=== PATIENT | male | born 1980 | race Hispanic/Latino ===

== ENCOUNTER 2018-10-29 14:08 | Emergency (ER) | payer OTHER ==
[~2018-10-29] VITALS: Ht 193 cm; Wt 108.9 kg
--- OUTSIDE RECORDS SUMMARY | 2018-10-29 14:12 | XMS REPORT | Continuity of Care Document ---
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 *SELF PAY* [employer] (PPO) *SELF PAY* [employer] (PPO) *SELF PAY* [employer] HE[employer] (PPO) *SELF PAY* [employer] HE[employer] (PPO) *SELF PAY* [employer] HE[employer] (PPO) *SELF PAY* C[employer] HE[employer] (PPO) *SELF PAY* [employer] (PPO) *SELF PAY* [employer] (PPO) *SELF PAY* [employer] (PPO) Encounters Encounter Performer Location Date Office Visit Moiz Story MD [facility] [place] Aug 09, 2014 Problems Problem Effective Dates 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, 2014 Active Procedures Date Description Comments Jul 24, 2014 smoking status Never smoker Medications Medication Instructions Start Date Status ADDERALL 15 MG TABS Jul 24, 2014 Active Vital Signs Date Description Test Result Jul 24, 2014 weight E&M - 3141-9 WEIGHT 332 lb Jul 24, 2014 height E&M - 8302-2 HEIGHT 72 in Jul 24, 2014 blood pressure, systolic - 8480-6 BP SYSTOLIC 144 mm Hg Jul 24, 2014 blood pressure, diastolic - 8462-4 BP DIASTOLIC 91 mm Hg Jul 24, 2014 pulse rate E&M - 8867-4 PULSE RATE 90 /min Jul 24, 2014 temperature E&M TEMPERATURE 96.5 deg f Aug 09, 2014 weight E&M - 3141-9 WEIGHT 325 lb Aug 09, 2014 height E&M - 8302-2 HEIGHT 77 in Aug 09, 2014 pulse rate E&M - 8867-4 PULSE RATE 105 /min Aug 09, 2014 blood pressure, systolic - 8480-6 BP SYSTOLIC 153 mm Hg Aug 09, 2014 blood pressure, diastolic - 8462-4 BP DIASTOLIC 95 mm Hg
--- OUTSIDE RECORDS SUMMARY | 2018-10-29 14:12 | XMS REPORT | Encounter Summary ---
Author Organization Unknown Address [address] [place] [address] Phone [phone] Care Team Providers Care Labor Service Representative Name Role Phone Carlo Smith MD 3 [phone] Reason for Visit Flu Immunization; Left Medical Complaint; Immunization Instructions 1. Tinea corporis ketoconazole 2 % topical cream 2. Influenza vaccine needed Fluarix Quad 7724-2162 (PF) 60 mcg (15 mcg x 4)/0.5 mL IM syringe 3. Immunization Adacel (Tdap Adolesn/Adult)(PF)2Lf-(2.5-5-3-5mcg)-5 Lf/0.5 mL IM susp 4. Counseling Discussion Note Pt is in NAD; Verbalizes understanding of all instructions with no questions at this time. Patient educational handouts: No information available. Plan of Care Patient Instructions Refer to your VIS handout as discussed in clinic today regarding your care after administration. Follow up with your PCP as needed. In case of emergecy call 911 or go to nearest ER. Td Booster every 10 years after first Tdap vaccine. Try not to scratch the rash. Shower or bathe daily and after you exercise. Keep your skin dry as much as possible to allow it to heal. Use selsum shampoo over the counter twice a week for 2 weeks. Do not share clothing, sports equipment, towels, or sheets to avoid spreading the fungi to other people. Keep area clean and dry. Clean with soap and water twice a day, pat dry and apply antifungal as directed. Take medications as prescribed. Return to clinic or follow up with your PCP or gold burnisher within 2-3 days if symptoms worsen as discussed. In case of emergency: worsening swelling or redness, tingling/numbness/loss of sensation and purple discoloration call 911 or go to nearest ER Reminders Provider Appointments None recorded. Lab None recorded. Referral None recorded. Procedures None recorded. Surgeries None recorded. Imaging None recorded. Medications Name Start Date dextroamphetamine-amphetamine 15 mg tablet TAKE 1 TABLET BY MOUTH TWICE A DAY ketoconazole 2 % topical cream APPLY TO THE AFFECTED AREA(S) BY TOPICAL ROUTE ONCE DAILY X 3 WEEKS Medications Administered None recorded. Vitals Height Weight BMI Blood Pressure 6 ft 5 in 300 lbs 35.6 kg/m2 122/86 mm[Hg] Lab Results None recorded. Allergies Code Code System Name Reaction Severity Status Onset NKDA Problems None recorded. Procedures Date Name Performed by Brain Biopsy W/ct/mr Guide Information not available Vaccine List Vaccine Type influenza, injectable, quadrivalent, preservative free 05/08/2017 Tdap 05/08/20170.5 mL Social History Smoking Status Former Smoker Past Encounters 05/08/2017 Tinea Corporis; Influenza Vaccine Needed; Immunization; Counseling Rubina Ram, SALT PLANT OPERATOR-C: [address] [place] [address], Ph. History of Present Illness Lwvk-Kfmrbfm-Thdte-Skin Lesion-Bite 1 Reported By: Patient HPI: Location: legs. Quality: not painful, itchy, flaking, red, single, localized, swollen, repeated infections. Severity: worsening, moderate. Duration: has noted for 2-3 months. Onset/Timing: gradual onset, recurring. Context: no new detergents or skin products, no one else with similar rash, no sting or bite, scratching. Aggravating factors: clothing. Alleviating factors: nothing gives relief. Associated Symptoms: no fever/chills, no muscle aches, no headache, no cold symptoms, no nausea, no vomiting, no diarrhea, no urinary symptoms Immunization Reported By: Patient HPI: Immunization Request (normal) no symptoms. Immunization eligibility questions No vaccines in last month, No reaction to previous vaccines: Review of Systems:ROS as noted in the HPI Review of Systems Basic Reported By: Patient Constitutional: Constitutional: no fever Physical Exam Adult Basic, 11-13 Yr Males, 14-21 Yr Male, Adult Female Complete, Adult Male Complete, Immunization Reported By: Patient Constitutional: General Appearance: healthy-appearing, well-nourished, well-developed. Level of Distress: NAD. Ambulation: ambulating normally Psychiatric: Mental Status: active and alert. Orientation: to time, to place, to person Lungs: Respiratory effort: no dyspnea. Auscultation: breath sounds normal Cardiovascular: Heart Auscultation: RRR, no murmurs Skin: Inspection and palpation: lesion Abdomen: Palpation: non-distended, no guarding, no tenderness. Liver: non-tender, no hepatomegaly. Spleen: non-tender, no splenomegaly. Hernia: no palpable hernias. Bowel Sounds: normal. Inspection and Palpation: soft, no rebound tenderness, no masses, no CVA tenderness
--- OUTSIDE RECORDS SUMMARY | 2018-10-29 14:12 | XMS REPORT | Continuity of Care Document ---
Author Author [facility] Address Unknown Phone Unavailable Problems Problem Status Onset Date Classification Date Reported Comments Source Body mass index 30+ - obesity 08/10/2017 Diagnosis 08/10/2017 [facility] Tinea corporis 08/10/2017 Diagnosis 08/10/2017 [facility] Acute lower respiratory tract infection 08/10/2017 Diagnosis 08/10/2017 [facility] Influenza vaccine needed 05/08/2017 Diagnosis 05/08/2017 [facility] Immunization 05/08/2017 Diagnosis 05/08/2017 [facility] Counseling 05/08/2017 Diagnosis 05/08/2017 [facility] Influenza-like symptoms 09/20/2016 Diagnosis 09/20/2016 [facility] Sore throat symptom 09/20/2016 Diagnosis 09/20/2016 [facility] ACOUSTIC NEUROMA Active 07/24/2014 Condition 2014 [facility] Medications Medication Details Route Status Patient Instructions Ordering Provider Order Date Source ADDERALL 15 MG TABS Active 07/24/2014 [facility] Amphetamine aspartate 3.75 MG / Amphetamine Sulfate 3.75 MG / Dextroamphetamine saccharate 3.75 MG / Dextroamphetamine Sulfate 3.75 MG Oral Tablet dextroamphetamine-amphetamine 15 mg tablet TAKE 1 TABLET BY MOUTH TWICE A DAY Active [facility] Ketoconazole 20 MG/ML Topical Cream ketoconazole 2 % topical cream APPLY TO THE AFFECTED AREA(S) BY TOPICAL ROUTE ONCE DAILY X 3 WEEKS Active [facility] Amoxicillin 875 MG / Clavulanate 125 MG Oral Tablet amoxicillin 875 mg-potassium clavulanate 125 mg tablet Take 1 tablet every 12 hours by oral route as directed for 10 days. Active [facility] 200 ACTUAT Albuterol 0.09 MG/ACTUAT Metered Dose Inhaler [ProAir] ProAir HFA 90 mcg/actuation aerosol inhaler Inhale 2 puffs every 4-6 hours by inhalation route as needed. Active [facility] terbinafine 250 MG Oral Tablet terbinafine HCl 250 mg tablet Take 1 tablet every day by oral route as directed for 30 days. Active [facility] Phentermine Hydrochloride 37.5 MG Oral Tablet phentermine 37.5 mg tablet TAKE ONE-HALF (1/2) TABLET(S) BY MOUTH EVERY MASONRY CONTRACTOR ADMINISTRATOR FOR 1 WEEK THEN TAKE 1 TABLET EVERY MASONRY CONTRACTOR ADMINISTRATOR. Active [facility] Oseltamivir 75 MG Oral Capsule [Tamiflu] Tamiflu 75 mg capsule Take 1 capsule every day by oral route as directed for 10 days. Active [facility] Allergies, Adverse Reactions, Alerts Substance Category Reaction Severity Reaction type Status Date Reported Comments Source Immunizations Immunization Date Given Site Status Last Updated Comments Source Tdap 05/08/2017 completed [facility] influenza, injectable, quadrivalent, preservative free 05/08/2017 completed [facility] Results Order Name Results Value Reference Range Date Interpretation Comments Source Influenza A negative 08/10/2017 [facility] Influenza B negative 08/10/2017 [facility] RESULT negative 09/20/2016 [facility] SWAB LOCATION Left and Right tonsillar pillars 09/20/2016 [facility] Influenza A negative 09/20/2016 [facility] Influenza B negative 09/20/2016 [facility] Vital Signs Vital Sign Value Date Comments Source Diastolic (mm Hg) 80 08/10/2017 [facility] Height 77 08/10/2017 [facility] Systolic (mm Hg) 120 08/10/2017 [facility] Weight 295 08/10/2017 [facility] Diastolic (mm Hg) 86 05/08/2017 [facility] Height 77 05/08/2017 [facility] Systolic (mm Hg) 122 05/08/2017 [facility] Weight 300 05/08/2017 [facility] Diastolic (mm Hg) 86 09/20/2016 [facility] Height 77 09/20/2016 [facility] Systolic (mm Hg) 128 09/20/2016 [facility] Weight 300 09/20/2016 [facility] Weight 293.4 2014 [facility] Height 77 2014 [facility] Temperature Oral (F) 97.0 F 2014 [facility] Heart Rate 93 2014 [facility] Systolic (mm Hg) 126 2014 [facility] Diastolic (mm Hg) 81 2014 [facility] Weight 324 11/21/2014 [facility] Height 77 11/21/2014 [facility] Temperature Oral (F) 97 F 11/21/2014 [facility] Heart Rate 98 11/21/2014 [facility] Systolic (mm Hg) 148 11/21/2014 [facility] Diastolic (mm Hg) 86 11/21/2014 [facility] Weight 325 08/09/2014 [facility] Height 77 08/09/2014 [facility] Heart Rate 105 08/09/2014 [facility] Systolic (mm Hg) 153 08/09/2014 [facility] Diastolic (mm Hg) 95 08/09/2014 [facility] Weight 332 07/24/2014 [facility] Height 72 07/24/2014 [facility] Systolic (mm Hg) 144 07/24/2014 [facility] Diastolic (mm Hg) 91 07/24/2014 [facility] Heart Rate 90 07/24/2014 [facility] Temperature Oral (F) 96.5 F 07/24/2014 [facility] Encounters Location Location Details Encounter Type Encounter Number Reason For Visit Attending Provider ADM Date DC Date Status Source [facility] [place] [id number] Moiz Story MD 07/24/2014 07/24/2014 [facility] [place] Office Visit [id number] Moiz Story MD 08/09/2014 08/09/2014 [facility] [place] Office Visit [id number] Moiz Story MD 11/21/2014 11/21/2014 [facility] [place] Office Visit [id number] Moiz Story MD 2014 2014 [facility] Outpatient [id number] JOSE GIBBS 03/14/2015 Active [facility] Outpatient [id number] JOSE GIBBS 01/09/2016 Active [facility] Outpatient [id number] JOSE GIBBS 07/30/2016 Active [facility] [place] - [facility] - [id number] Collins-C: [address] [place] [address], Ph. [id number] Rubina Ram 09/20/[facility] [place] [facility] - [id number] Collins-C: [address] [place] [address], Ph. [id number] Rubina Ram 05/08/2017 [facility] [place] [facility] - [id number]/[address] JIN CalderónC: [address] [place] [address], Ph. [id number] Jeancarlos Gardiner 08/10/2017 [facility] Outpatient [id number] Jose Gibbs 09/15/2018 Active [facility] Procedures Procedure Code Date Perfomer Comments Source Brain Biopsy W/ct/mr Guide 49341 [facility] Brain Biopsy W/ct/mr Guide [facility]
--- OUTSIDE RECORDS SUMMARY | 2018-10-29 14:12 | XMS REPORT | Encounter Summary ---
Author Organization Unknown Address [address] [place] [address] Phone [phone] Care Team Providers Care Airplane Navigator Name Role Phone Carlo Smith MD 3 [phone] Reason for Visit Medical Complaint Instructions 1. Acute lower respiratory tract infection rapid flu (A+B) amoxicillin 875 mg-potassium clavulanate 125 mg tablet ProAir HFA 90 mcg/actuation aerosol inhaler 2. Tinea corporis terbinafine HCl 250 mg tablet 3. Body mass index 30+ - obesity Discussion Note OTC tylenol/ibuprofen as needed for fever/pain. Stay hydrated and rest. If symptoms do not improve after completion of antibiotic or worsens sooner, please follow up with PCP/UC within 3 days. Keep area clean and dry. Avoid touching the area. If symptoms do not improve after completion of antifungal or worsens sooner, please follow up with PCP/social insurance analyst within 3 days or sooner if needed. Follow up with PCP to monitor LFTs. discussed treatment plan and medication use. patient verbalized understanding and agrees with the plan. Patient educational handouts: No information available. Plan of Care Patient Instructions continue claritin-d as needed. Reminders Provider Appointments None recorded. Lab Rapid Flu (A+B) 08/10/2017 [facility] Referral None recorded. Procedures None recorded. Surgeries None recorded. Imaging None recorded. Medications Name Start Date amoxicillin 875 mg-potassium clavulanate 125 mg tablet Take 1 tablet every 12 hours by oral route as directed for 10 days. dextroamphetamine-amphetamine 15 mg tablet TAKE 1 TABLET BY MOUTH TWICE A DAY ProAir HFA 90 mcg/actuation aerosol inhaler Inhale 2 puffs every 4-6 hours by inhalation route as needed. terbinafine HCl 250 mg tablet Take 1 tablet every day by oral route as directed for 30 days. Medications Administered None recorded. Vitals Height Weight BMI Blood Pressure 6 ft 5 in 295 lbs 35 kg/m2 120/80 mm[Hg] Lab Results Date Name Specimen Result Interpretation Description Value Range Status Address Rapid Flu (A+B) Influenza a negative [facility]: [facility] Influenza B negative [facility]: [address] [place] [address] Allergies Code Code System Name Reaction Severity Status Onset NKDA Problems None recorded. Procedures Date Name Performed by Brain Biopsy W/ct/mr Guide Information not available Vaccine List Vaccine Type influenza, injectable, quadrivalent, preservative free 05/08/2017 Tdap 05/08/20170.5 mL Social History Smoking Status Former Smoker Past Encounters 08/10/2017 Acute Lower Respiratory Tract Infection; Tinea Corporis; Body Mass Index 30+ - Obesity Jeancarlos Gardiner PA-C: [address] [place] [address], Ph. History of Present Illness Gxpt-Atksgbw-Xtcfh-Skin Lesion-Bite 1 Reported By: Patient HPI: Location: legs. Quality: not painful, itchy, dry, red, single, localized. Severity: worsening, mild. Duration: has noted for >3 months. Onset/Timing: gradual onset. Context: no new detergents or skin products, no one else with similar rash, no sting or bite; Pt was treated for ringworm rash on 05/08/17 with topical ketoconazole cream; rash has not improved. Aggravating factors: nothing makes it worse. Alleviating factors: nothing gives relief; OTC lotrim. Associated Symptoms: no fever/chills, no headache, no nausea, no vomiting, no diarrhea, no urinary symptoms, muscle aches, cold symptoms Kwirp-Utndontpgf-Fsufhwg Reported By: Patient HPI: Location: head/sinuses, chest. Quality: nasal/sinus congestion; no sore throat. Duration: 2days. Severity: mild; worse. Onset/Timing: sudden. Context: no foreign travel, non-smoker, sick contact. Modifying factors: OTC medication. Associated Symptoms: no sputum production, no change in number of pillows needed to sleep at night, no sweats, no significant weight gain, no significant weight loss, no sore throat, no vomiting, no diarrhea, no rash, no nausea, no fever, no headache, shortness of breath, wheezing, morning cough, muscle aches; ear pain/pressure; no abdominal pain Review of Systems:ROS as noted in the HPI Review of Systems Basic Reported By: Patient Physical Exam Adult Basic, Adult Male Complete Reported By: Patient Constitutional: General Appearance: obese. Level of Distress: NAD. Ambulation: ambulating normally Psychiatric: Mental Status: active and alert. Orientation: to time, to place, to person Eyes: Lids and Conjunctivae: non-injected, no discharge, no pallor. Pupils: PERRLA. Sclerae: non-icteric Wzm-Dhzq-Ssapi-Throat: Ears: no lesions on external ear, no outer ear tenderness, EACs clear, TMs clear, TM mobility normal. Hearing: no hearing loss. Nose: no lesions on external nose, nares patent, no septal deviation, nasal passages clear, sinus tenderness, post nasal drip. Lips, Teeth, and Gums: no mouth or lip ulcers, no bleeding gums, normal dentition. Oropharynx: moist mucous membranes, no exudates, tonsils not enlarged, erythema Neck: Neck: supple, trachea midline, no masses, FROM. Lymph Nodes: no cervical LAD. Thyroid: no enlargement, non-tender, no nodules Lungs: Respiratory effort: no dyspnea, no tachypnea, no use of accessory muscles, no intercostal retractions. Auscultation: good air movement, expiratory wheezing, dry rales/crackles Cardiovascular: Heart Auscultation: RRR, no murmurs Neurologic: Gait and Station: normal gait, normal station Skin: Inspection and palpation: rash
--- OUTSIDE RECORDS SUMMARY | 2018-10-29 14:12 | XMS REPORT | Continuity of Care Document ---
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, 2014 Active Procedures Date Description Comments Jul 24, 2014 smoking status Never smoker 2014 smoking status Never smoker Medications Medication [...] - 8462-4 BP DIASTOLIC 95 mm Hg 2014 weight E&M - 3141-9 WEIGHT 293.4 lb 2014 height E&M - 8302-2 HEIGHT 77 in 2014 temperature E&M TEMPERATURE 97.0 deg f 2014 pulse rate E&M - 8867-4 PULSE RATE 93 /min 2014 blood pressure, systolic - 8480-6 BP SYSTOLIC 126 mm Hg 2014 blood pressure, diastolic - 8462-4 BP DIASTOLIC 81 mm Hg Nov 21, 2014 weight E&M - 3141-9 WEIGHT 324 lb Nov 21, 2014 height E&M - 8302-2 HEIGHT 77 in Nov 21, 2014 temperature E&M TEMPERATURE 97 deg f Nov 21, 2014 pulse rate E&M - 8867-4 PULSE RATE 98 /min Nov 21, 2014 blood pressure, systolic - 8480-6 BP SYSTOLIC 148 mm Hg Nov 21, 2014 blood pressure, diastolic - 8462-4 BP DIASTOLIC 86 mm Hg
--- OUTSIDE RECORDS SUMMARY | 2018-10-29 14:12 | XMS REPORT | Continuity of Care Document ---
Author Author [facility] Organization [facility] Address Unknown Phone Unavailable Care Team Providers Care Molder Name Role Phone Moiz Story MD, PP Unavailable Insurance Providers Payer name Policy type / Coverage type Policy ID Covered republican ID Policy Kohli [employer] (PPO) *SELF [...] Office Visit Moiz Story MD [facility] [place] Problems Problem Effective Dates Problem Status [...]
--- OUTSIDE RECORDS SUMMARY | 2018-10-29 14:12 | XMS REPORT | Encounter Summary ---
Author Organization Unknown Address [address] [place] [id number] Phone [phone] Care Team Providers Care Durable Medical Equipment Repairer Name Role Phone Carlo Smith MD 3 [phone] Reason for Visit Medical Complaint Instructions 1. Influenza-like symptoms Tamiflu 75 mg capsule rapid flu (A+B) 2. Sore throat symptom rapid strep group A, throat sore throat: care instructions Discussion Note Pt is in NAD; Verbalizes understanding of all instructions with no questions at this time. Plan of Care Patient Instructions Alternate with Ibuprofen and acetaminophen every 4hrs as needed for fever/pain/headache Proper hydration and rest Return to school of fever free for 24 hrs. Take Chloraseptic spray over the counter as needed for sore throat as directed. Do not share any utensils/cups, no kissing. Take medications as prescribed. Return to clinic or follow up with your PCP within 2-3 days if symptoms worsen as discussed. Reminders Provider Appointments None recorded. Lab Rapid Flu (A+B) 09/20/2016 [facility] Rapid Strep Group a, Throat 09/20/2016 [facility] Referral None recorded. Procedures None recorded. Surgeries None recorded. Imaging None recorded. Medications Name Start Date dextroamphetamine-amphetamine 15 mg tablet TAKE 1 TABLET BY MOUTH TWICE A DAY phentermine 37.5 mg tablet TAKE ONE-HALF (1/2) TABLET(S) BY MOUTH EVERY [employer] SALES CONSULTANT FOR 1 WEEK THEN TAKE 1 TABLET EVERY [employer] SALES CONSULTANT. Tamiflu 75 mg capsule Take 1 capsule every day by oral route as directed for 10 days. Medications Administered None recorded. Vitals Height Weight BMI Blood Pressure 6 ft 5 in 300 lbs 35.6 128/86 Lab Results Date Name Specimen Result Interpretation Description Value Range Status Address Rapid Strep Group a, Throat Result negative [facility]: [address] [place] [address] Swab Location Left and Right tonsillar pillars [facility]: [address] [place] [address] Rapid Flu (A+B) Influenza a negative [facility]: [address] [place] [address] Influenza B negative [facility]: [facility] Allergies Code Code System Name Reaction Severity Onset NKDA Problems None recorded. Procedures Date Name Performed by Brain Biopsy W/ct/mr Guide Information not available Vaccine List None recorded. Social History Smoking Status Former Smoker Past Encounters 09/20/2016 Influenza-like Symptoms; Sore Throat Symptom Rubina Ram, PUBLIC HEALTH SPECIALIST-C: [address] [place] [address], Ph. History of Present Illness [id number] Reported By: Patient HPI: Duration: 2 days. Severity: subjective temperature. Context: no tick/insect bites, no recent travel, no new medications, ill contacts. Associated Symptoms: no headache, no muscle aches, no rash, no lethargy, fever/chills; body aches, feeling feverish, and sore throat. Modifying Factors OTC medication Review of Systems:ROS as noted in the HPI Review of Systems Basic Reported By: Patient Physical Exam Adult Basic, Adult Female Complete, Adult Male Complete Reported By: Patient Constitutional: General Appearance: healthy-appearing, well-nourished, well-developed. Level of Distress: NAD. Ambulation: ambulating normally Psychiatric: Mental Status: active and alert. Orientation: to time, to place, to person Hco-Nheb-Rhvan-Throat: Ears: no lesions on external ear, no outer ear tenderness, EACs clear, TMs clear. Nose: no lesions on external nose, nares patent, no septal deviation, nasal passages clear, no sinus tenderness, no nasal discharge. Lips, Teeth, and Gums: no mouth or lip ulcers, no bleeding gums, normal dentition. Oropharynx: moist mucous membranes, no exudates, tonsils not enlarged, erythema Neck: Lymph Nodes: anterior cervical LAD Lungs: Respiratory effort: no dyspnea, no tachypnea, no use of accessory muscles, no intercostal retractions. Auscultation: breath sounds normal Cardiovascular: Heart Auscultation: RRR, no murmurs Neurologic: Gait and Station: normal gait, normal station
--- OUTSIDE RECORDS SUMMARY | 2018-10-29 14:12 | XMS REPORT | Continuity of Care Document ---
Author Author [facility] Organization [facility] Address Unknown Phone Unavailable Care Team Providers Care Behaviour Support Teacher Name Role Phone Day Moiz ALVAREZ PP [...] Office Visit Moiz Story MD [facility] [place] Jul 24, 2014 Problems Problem Effective Dates Problem Status [...]
[2018-10-29] MEDS ORDERED: KETOROLAC TROMETHAMINE 30 MG/ML VIAL IV STA (14:30)
[2018-10-29] MEDS ORDERED: ULTRAM50 MG PO (14:33)
[2018-10-29] MEDS ORDERED: PENICILLIN V P500 MG PO (14:33)
[2018-10-29] MEDS ORDERED: NAPROXEN250 MG PO (14:33)
[2018-10-29] MEDS ORDERED: KETOROLAC TROMETHAMINE 60 MG/2 ML VIAL ONE (14:34)
== END 2018-10-29 17:52 | disposition home or self-care (01) ==
LOC: FSED 14:08
DX: K08.89 Other specified disorders of teeth and supporting structures (principal)
CPT/HCPCS: 99283; J1885 ×2